=== PATIENT | male | born 1950 ===

== ENCOUNTER 2025-07-07 09:07 | Inpatient (IN) | payer MEDICARE, OTHER, SELFPAY ==
[2025-07-07] VITALS (14 sets, daily range): BP systolic 141–183; BP diastolic 83–117; BMI 27.8
--- NOTE | 2025-07-07 09:23 | W.PN.CD ---
Addendum entered and electronically signed by Hugo Deluna MD 07/07/25 15:18:
Patient seen and evaluated personally. I agree with the plan of care, documentation and physical examination as noted below.
Briefly, 74-year-old gentleman with a history of persistent atrial fibrillation and atrial flutter status post A-fib ablations x 2 with recurrent atrial fibrillation is here for Tikosyn loading.
EKG done today shows atrial fibrillation/atypical flutter. Patient's QTc is 402 ms. QRS duration is 100 ms. There is probably left anterior fascicular block. Creatinine is 1.1
Patient is an acceptable candidate to start Tikosyn loading. Plan is to load 5-6 doses before discharge.
Continue monitoring EKGs and telemetry while loading with Tikosyn.
Original Note:
Today's Communication / Plan
-
*This is the H&P Summary. Please see scanned H&P*
BMP & EKG then Tikosyn loading per protocol.
Impression / Plan
-
I/P: 74M with hyperlipidemia, HTN and persistent atrial fibrillation presents for Tikosyn loading
Mailroom Messenger: Dr. Deluna
Persistent atrial fibrillation
Atrial flutter, type unknown
- Diagnosed 10/2024 s/p LIANE/DCCV & 12/2024 & ablation (Dr. Melendez, 02/2025), he did not want a repeat ablation
- Highly symptomatic with fatigue, lethargy, loss of energy and endurance
- Oral Anticoagulation: Eliquis 5 mg BID, he denies missed doses and abnormal bleeding
- [id number]: score at least 2 (HTN, age 65-74), will be 3 in September
- BMP & EKG
- Tikosyn loading per protocol
JAXSON clot, resolved
HTN, chronic and stable
HLD, on atorvastatin
SUBJECTIVE:
Denies CP, dizziness, and SOB.
Physical Exam
Physical Exam
Constitutional: No acute distress
EENT: Anicteric and Moist mucous membranes
Cardiovascular: Rhythm & rate is regular and S1S2 is normal
Respiratory: Respiratory effort normal and Lungs clear to auscul.
GI: Soft, Distention absent, Flat, Non tender and Normal bowel sounds
Neuro/Psych: AO x 3
Other: Skin (warm and dry without edema)
Data Reviewed
-
Date of Service: July 07, 2025
EKG: Ordered by me
Labs: Labs Ordered by me
Old Records: Reviewed
--- NOTE | 2025-07-07 10:34 | W.CARD.TIKOS ---
Initiate Tikosyn
-
I verify that the patient has not taken any verapamil (Isoptin/Calan), ketoconazole (Nizoral), cimetidine (Tagamet), trimethoprim (Trimpex), trimethoprim/sulfamethoxazole (Bactrim), megesterol (Megace), prochlorperazine (Compazine),
hydrochlorothiazide (HCTZ), dolutegravir (Tivicay) or any Class I or Class III anti-arrhythmic within the last three days
AND
I verify that the patient has not taken amiodarone within the last THREE months, or that the patient's amiodarone plasma concentration is <0.3 mcg/mL.
Does patient have a Ventricular Conduction Abnormality: No
I have assessed the baseline QTc interval (using QT for heart rate less than 60 bpm) and deemed the patient is appropriate for Dofetilide therapy. I understand that Tikosyn is contraindicated if the QTc is >440msec (500msec in patients with
ventricular conduction abnormalities).
Baseline QTc (in msec): 410
Ordering Physician: Hugo Deluna
--- NOTE | 2025-07-07 10:55 | PTCARENOTE ---
Patient admitted to IVU for Tikosyn loading for A-fib. Iv placed, labs collected, placed on telemetry. A-flutter/fib HR in the 40's. Patient oriented to room and call prater
[2025-07-07 11:57] LABS: Blood Urea Nitrogen 28 mg/dl (9-20); Calcium 8.8 mg/dl (8.4-10.2); Carbon Dioxide 28 mmol/L (22-30); Chloride 103 mmol/L (98-107); Estimated Creatinine Clearance 72 ml/min; Glucose 88 mg/dl (70-99); Potassium 4.3 mmol/L (3.5-5.1); Sodium 134 mmol/L (135-145); eGFR > 60.00
--- NOTE | 2025-07-07 14:06 | CM ---
spoke to pt in room, he is prev indep, lives with his in a 2 story home with 1 step to enter. he denies any dc plannin gneeds or dme's. cm to check on dofetilide avail at his pharm closer to dc.
--- NOTE | 2025-07-07 16:12 | PTCARENOTE ---
BP 150's/100's. Cozaar 25 mg PO taken this morning prior to admission. Notified Shantal RICKS, Cozaar increased 25 mg PO BID
[2025-07-07 18:51] LABS: Hepatitis C Antibody Negative (Negative)
[2025-07-07] MEDS: ELIQUIS 5 MG PO (20:03)
[2025-07-07] MEDS: TIKOSYN 500 MCG PO (20:06)
[2025-07-07] MEDS: COZAAR 25 MG PO (20:06)
[2025-07-07] MEDS: LIPITOR 10 MG PO (22:11)
--- NOTE | 2025-07-07 23:09 | PTCARENOTE ---
assumed care of patient at the change of shift. AAOx3. denies any pain. denies any lightheadedness/dizziness. independent in the room. Aflutter on tele- 50s-70s. elevated bp- improved after scheduled medications. 1st dose of Tikosyn given, see mar.
QTc post- 478. educated patient to inform RN with any changes overnight. call prater within reach. makes needs known.
patient requesting to take a shower tomorrow. notified Helio ROQUE. order placed.
--- NOTE | 2025-07-07 23:14 | PTCARENOTE ---
assumed care of patient at the change of shift. AAOx3. denies any pain. denies any lightheadedness/dizziness. independent in the room. Aflutter on tele- 50s-70s. elevated bp- improved after scheduled medications. 1st dose of Tikosyn given, see mar.
QTc post- 478. educated patient to inform RN with any changes overnight. call prater within reach. makes needs known.
[2025-07-08] VITALS (7 sets, daily range): BP systolic 140–169; BP diastolic 75–104
[2025-07-08] MEDS: COZAAR 25 MG PO ×2 (05:33→17:21)
--- NOTE | 2025-07-08 05:41 | PTCARENOTE ---
HR slow aflutter overnight 40s-60s. elevated blood pressure this morning after multiple attempts- 161/101. updated Dr. Soler via TT. morning dose of Cozaar 25 mg given early per MD, see mar. no complaints at this time.
[2025-07-08] MEDS: ELIQUIS 5 MG PO ×2 (08:29→20:01)
[2025-07-08] MEDS: FLUSH (NSS) 1 FLUSH IV (08:29)
[2025-07-08] MEDS: TIKOSYN PO (09:07)
[2025-07-08] MEDS: TIKOSYN 250 MCG PO ×2 (09:12→20:01)
--- NOTE | 2025-07-08 09:40 | PTCARENOTE ---
Received patient this morning resting in bed. Remains in A flutters with rates at times in the 40's and pauses > 2.0. Held off on morning dose of tikosyn 500mcg, spoke with cardiology and dose decreased to 250mcg. Patient is aware that plan is for
CV tomorrow.
--- NOTE | 2025-07-08 16:45 | PTCARENOTE ---
BP 148/104, remains in A flutter with rates in the 50-70's. TT to Sesar Peterson PRICING CONSULTANT re: BP, ok to give PM dose of losartan early, no further orders at this time.
[2025-07-08] MEDS: LIPITOR 10 MG PO (22:30)
[2025-07-09] VITALS (11 sets, daily range): BP systolic 117–179; BP diastolic 71–114
--- NOTE | 2025-07-09 04:19 | DOWNTIME ---
There was a [employer] Client Kitchen [employer]er Downtime on 07/09/2025 from 0100 to 07/09/2025 at 0255. Downtime documentation of patient's care, including medication administrations, has been reconciled in the electronic record per guidelines. Refer to the
patient's paper chart under the miscellaneous tab to see printed paper medication records and downtime forms.
[2025-07-09] MEDS: COZAAR 25 MG PO ×2 (05:14→20:14)
[2025-07-09 05:22] LABS: Hematocrit 36.4 % (39.0-52.0); Hemoglobin 12.4 g/dL (13.0-18.0); Mean Corp Hgb Conc. 34.1 g/dL (33.0-37.0); Mean Corpuscular Volume 90.3 fL (80.0-94.0); Platelet Count 345 10^3/uL (130-400); Red Cell Dist. Width 14.4 % (11.5-14.5)
[2025-07-09 05:49] LABS: Blood Urea Nitrogen 27 mg/dl (9-20); Calcium 9.0 mg/dl (8.4-10.2); Carbon Dioxide 28 mmol/L (22-30); Chloride 102 mmol/L (98-107); Estimated Creatinine Clearance 80 ml/min; Glucose 98 mg/dl (70-99); Magnesium 2.3 mg/dl (1.6-2.3); Potassium 4.5 mmol/L (3.5-5.1); Sodium 136 mmol/L (135-145); eGFR > 60.00
--- NOTE | 2025-07-09 06:42 | PTCARENOTE ---
Bp 173/109 At approx 0500 this morning, pt asymptomatic. plaster and stucco worker CT PA made aware, new order to give 0800 dose of cozaar.
--- NOTE | 2025-07-09 06:43 | PTCARENOTE ---
Assumed care on pt at 1900, aaox3, resting in bed with no complaints of cp/ palpitations or SOB. Afib on tele, HR 60-70's. Pox 95% RA. Tikosyn 250mcg adm at 1999, EKG obtained as per protocol. Call prater within reach, POC ongoing.
--- NOTE | 2025-07-09 08:12 | W.PN.CD ---
Today's Communication / Plan
-
- Continue loading Tikosyn at reduced dose of 250 mcg every 12 hours
- N.p.o. after midnight
- Plan for DCCV on 07/09/2025
Impression / Plan
-
I/P: 74M with hyperlipidemia, HTN and persistent atrial fibrillation presents for Tikosyn loading
Clinic Lead: Dr. Deluna
Persistent atrial fibrillation
Atrial flutter, type unknown
- Diagnosed 10/2024 s/p LIANE/DCCV & 12/2024 & ablation (Dr. Melendez, 02/2025), he did not want a repeat ablation
- Highly symptomatic with fatigue, lethargy, loss of energy and endurance
- Oral Anticoagulation: Eliquis 5 mg BID, he denies missed doses and abnormal bleeding
- [id number]: score at least 2 (HTN, age 65-74), will be 3 in September
- BMP & EKG
- Tikosyn loading -patient has questionable long QT due to flutter wave interference with QT measurements.
- Reduce Tikosyn to 250 mcg every 12 hours and plan for DC cardioversion on 07/09/2025
- Continue loading Tikosyn at reduced dose of 250 mcg every 12 hours
JAXSON clot, resolved
HTN, chronic and stable
HLD, on atorvastatin
SUBJECTIVE:
Denies CP, dizziness, and SOB. Tolerating Tikosyn well without any symptoms.
Physical Exam
Vital Signs/Labs
Vital Signs
Temp Pulse Resp BP Pulse Ox
97.5 F 59 18 179/105 99
07/09/25 07:51 07/09/25 07:51 07/09/25 07:51 07/09/25 05:52 07/09/25 07:51
07/08/25 07/09/25 07/10/25
06:59 06:59 06:59
Actual Weight 103.5 kg
07/09/25 04:54
07/09/25 04:54
Magnesium 2.3 mg/dl (1.6-2.3) 07/09/25 04:54
Physical Exam
Constitutional: No acute distress and Comfortable
EENT: Anicteric and Moist mucous membranes
Cardiovascular: Pedal edema is absent, JVD pressure is normal and Rhythm/rate is irregular
Respiratory: Respiratory effort normal, Wheeze Absent and Crackles Absent
GI: Soft, Non tender and Normal bowel sounds
Neuro/Psych: Alert, Oriented and AO x 3
Data Reviewed
-
Date of Service: July 09, 2025
Medical Decision Making: Reviewed Test Results, Test Interpretation and Review of Case with other Provider
EKG: Tracing Personally Visualized and interpreted
Labs: Labs Reviewed by me
Old Records: Reviewed
[2025-07-09] MEDS: ELIQUIS 5 MG PO ×2 (08:27→20:14)
[2025-07-09] MEDS: TIKOSYN 250 MCG PO ×2 (08:27→20:14)
--- NOTE | 2025-07-09 19:26 | PTCARENOTE ---
Pt had a successful cardioversion to sinus irma with first degree AV block, heart rates initially in the 30's post procedure, up to 40-70 for the rest of the shift. Pt asymptomatic, up independently, voiding without difficulty. Plan for Tikosyn
dose #5 tonight.
[2025-07-09] MEDS: LIPITOR 10 MG PO (22:21)
--- NOTE | 2025-07-09 23:25 | PTCARENOTE ---
Patient received at change of shift ambulating in the hallway. Offers no complaints, feels ready to go home. Sinus rhythm/sinus irma on telemetry with a first degree AVB. Denies feeling lightheaded or dizzy. Denies pain. Oxygen saturation 97-100%
on room air. Plan of care discussed. Call prater within reach. Care ongoing.
[2025-07-10 03:12] VITALS: BP 142/72
[2025-07-10 07:16] VITALS: BP 136/97
[2025-07-10] MEDS: COZAAR 25 MG PO (08:33)
[2025-07-10] MEDS: TIKOSYN 250 MCG PO (08:33)
[2025-07-10] MEDS: ELIQUIS 5 MG PO (08:33)
--- NOTE | 2025-07-10 10:26 | W.PN.CD ---
Today's Communication / Plan
-
- Plan for discharge at Tikosyn 250 mcg q12h
Impression / Plan
-
I/P: 74M with hyperlipidemia, HTN and persistent atrial fibrillation presents for Tikosyn loading
Veneer Redrier: Dr. Deluna
Persistent atrial fibrillation
Atrial flutter, type unknown
- Diagnosed 10/2024 s/p LIANE/DCCV & 12/2024 & ablation (Dr. Melendez, 02/2025), he did not want a repeat ablation
- s/p DCCV 07/09/25
- Highly symptomatic with fatigue, lethargy, loss of energy and endurance
- Oral Anticoagulation: Eliquis 5 mg BID, he denies missed doses and abnormal bleeding
- [id number]: score at least 2 (HTN, age 65-74), will be 3 in September
- BMP & EKG
- Tikosyn loading completed.
- QTc is acceptable.
- Plan to discharge on Tikosyn 250 mcg every 12 hours
- Continue Eliquis 5 mg BID.
JAXSON clot, resolved
HTN, chronic and stable
HLD, on atorvastatin
SUBJECTIVE:
Denies CP, dizziness, and SOB. Tolerating Tikosyn well without any symptoms.
Physical Exam
Vital Signs/Labs
Vital Signs
Temp Pulse Resp BP Pulse Ox
98.1 F 70 20 136/77 97
07/10/25 07:17 07/10/25 07:30 07/10/25 07:17 07/10/25 08:33 07/10/25 08:38
07/09/25 04:54
07/09/25 04:54
Magnesium 2.3 mg/dl (1.6-2.3) 07/09/25 04:54
Physical Exam
Constitutional: No acute distress and Comfortable
EENT: Anicteric and Moist mucous membranes
Cardiovascular: Rhythm & rate is regular, Pedal edema is absent, JVD pressure is normal and Systolic murmur absent
Respiratory: Respiratory effort normal, Lungs clear to auscul. and Wheeze Absent
GI: Soft, Non tender and Normal bowel sounds
Neuro/Psych: Alert, Oriented and AO x 3
Data Reviewed
-
Date of Service: July 10, 2025
Medical Decision Making: Reviewed Test Results, Test Interpretation and Review of Case with other Provider
EKG: Tracing Personally Visualized and interpreted
Labs: Labs Reviewed by me
Old Records: Reviewed
[2025-07-10 11:51] VITALS: BP 149/84
--- NOTE | 2025-07-10 11:54 | W.DS.TRANS ---
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
-
Discharge Instructions:
Discharge Diagnosis/Procedures Diagnosis: Atrial fibrillation
Procedure: Cardioversion
Medication: Dofetilide initiation
Diet Low Cholesterol,Low Fat,2 Gram Sodium
Activity As tolerated
Driving Restrictions No driving for 24 hours
Bathing Restrictions None
Instructions:
Stand-Alone Forms:
Changes to Home Medications: Yes
Discharge Medications:
DC Medications w/original date entered in [employer]
atorvastatin 10 mg tablet 10 mg PO HS High Cholesterol 07/07/25
apixaban 5 mg tablet (Eliquis) 5 mg PO BID Blood Clot Prevention/Tx 07/09/25
dofetilide 250 mcg capsule 250 mcg PO Q12 #60 caps 07/10/25
losartan 25 mg tablet 25 mg PO BID #60 tabs 07/10/25
Home Medication Changes
dofetilide added
losartan 25 mg twice daily
Pending Results: No
--- NOTE | 2025-07-10 13:10 | PTCARENOTE ---
Pt remains in sinus brasy with first degree AV block. Tikosyn dose #6 given adn ECG revieweed by . Telemetry and IV device removed. Discharge instructions reviewed with pt and his regarding medications and their possible side effects,
reporting cares and concerns and follow up appt's. Very good understanding verbalized. Pt ambulated out with his , 3 day prescription for tikosyn filled and given to pt.
== END 2025-07-10 13:13 | disposition home or self-care (01) | DRG 310 ==
LOC: IVU 09:07
PROVIDERS: Nurse Practitioner Gerontology; Physician Assistant Medical; Student in an Organized Health Care Education/Training Program; ADMITTING PHYSICIAN Internal Medicine Cardiovascular Disease; FAMILY PHYSICIAN Family Medicine
PROC: 5A2204Z Restoration of Cardiac Rhythm, Single (ICD-10-PCS; 2025-07-09)
DX: I48.19 Other persistent atrial fibrillation (principal); I48.92 Unspecified atrial flutter; Z79.01 Long term (current) use of anticoagulants; I10 Essential (primary) hypertension; Z79.899 Other long term (current) drug therapy; E78.5 Hyperlipidemia, unspecified
CPT/HCPCS: 80048; 83735; 85027; 86803; 92960; 93005